=== PATIENT | male | born 1990 | race Hispanic/Latino ===

== ENCOUNTER 2025-04-01 22:35 | Emergency (ER) | payer OTHER ==
[~2025-04-01] VITALS: Ht 172.7 cm; Wt 73.9 kg
[2025-04-01 23:05] LABS: BASOPHILS # (AUTO) 0.04 K/uL (0.00-0.20); BASOPHILS % (AUTO) 0.5 % (0.0-5.0); EOSINOPHILS # (AUTO) 0.28 K/uL (0.00-0.70); EOSINOPHILS % (AUTO) 3.4 % (0.0-8.0); HEMATOCRIT 33.8 % (42-54); IMMATURE GRANULOCYTE ABSOLUTE 0.01 K/uL (0-1); LYMPHOCYTES # (AUTO) 2.4 K/uL (1.0-4.8); LYMPHOCYTES % (AUTO) 28.7 % (21.0-51.0); MEAN CORPUSCULAR HEMOGLOBIN 28.9 pg (27.0-33.0); MEAN CORPUSCULAR HGB CONC 34.9 g/dL (32.0-36.0); MEAN CORPUSCULAR VOLUME 82.8 fL (79-99); MONOCYTES # (AUTO) 1.2 K/uL (0.1-1.0); NEUTROPHILS # (AUTO) 4.4 K/uL (1.8-7.7); NEUTROPHILS % (AUTO) 53.3 % (40.0-77.0); PLATELET COUNT (AUTO) 255 K/uL (130-400); RED BLOOD CELL COUNT(AUTO) 4.08 MIL/uL (4.50-6.20); WHITE BLOOD COUNT (AUTO) 8.2 K/uL (4.8-10.8)
[2025-04-01 23:13] LABS: CREATININE 0.7 mg/dL (0.5-1.3); POTASSIUM 3.6 mmol/L (3.5-5.1)
[2025-04-01 23:14] LABS: INR 1.03 (0.85-1.15); PROTHROMBIN TIME 10.9 SEC (9.6-11.6)
[2025-04-01 23:33] LABS: AMPHET/METH SCREEN,URINE NEGATIVE (NEGATIVE); BARBITURATE SCREEN, URINE NEGATIVE (NEGATIVE); BENZODIAZEPINES SCREEN,URINE NEGATIVE (NEGATIVE); CANNABINOID SCREEN,URINE NEGATIVE (NEGATIVE); COCAINE SCREEN,URINE NEGATIVE (NEGATIVE); OPIATE SCREEN,URINE NEGATIVE (NEGATIVE); PHENCYCLIDINE SCREEN,URINE NEGATIVE (NEGATIVE)
[2025-04-01 23:34] LABS: B-TYPE NATRIURETIC PEPTIDE < 5 pg/mL (0-100)
--- NOTE | 2025-04-01 23:54 | HMCIMG ---
CHEST 1VW HISTORY: Chest pain COMPARISON: None FINDINGS: A frontal projection of the chest was obtained. Prominent interstitial markings are seen with possible superimposed infiltrates. The heart is normal in size. Degenerative changes are seen. No evidence of aortic calcification is seen. IMPRESSION: 1. Prominent interstitial markings are seen with possible superimposed infiltrates.
[2025-04-02 00:41] VITALS: BP 120/81; PULSE 80; RESP 19; TEMP 98.6; O2SAT 98
--- NOTE | 2025-04-02 00:42 | ERN ---
General Chief Complaint: Chest Pain Stated Complaint: SOB WITH ASSOCIATED CP IN [facility] Time Seen by MD: 22:41 History of Present Illness Initial Comments 34-year-old male brought in by EMS from a [facility] for chest pains. Patient reports he has been feeling left-sided chest pain for the last 24 hours. It radiates to his left arm. He reports he does have a cardiac history and has a child he had a heart surgery. Denies other symptoms. Past Medical History Past Medical History: Asthma, Diabetes-Type II, Hypertension, Seizure Past Surgical History: Unknown ROS Dictation CONSTITUTIONAL: No chills, no fever, no weakness, no diaphoresis, no malaise. HEAD/FACE: No signs of trauma. EENT: No eye pain, no blurred vision, no tearing, no double vision, no ear pain, no ear discharge, no nose pain, no nasal congestion, no throat pain, no throat swelling, no mouth pain. RESPIRATORY: No cough, no orthopnea, no SOB, no stridor, no wheezing. CARDIOVASCULAR: Chest pain GASTROINTESTINAL/ABDOMINAL: No abdominal pain, no constipation, no diarrhea, no nausea, no vomiting. GENITOURINARY: No abnormal discharge, no dysuria, no frequent urination, no hematuria. No complaints of pain in the genitals. MUSCULOSKELETAL: No back pain, no gout, no joint pain, no joint swelling, no muscle pain, no muscle stiffness, no neck pain. INTEGUMENTARY: No change in color, no change in hair/nails, no dryness, no lesion, no lumps, no rash. NEUROLOGICAL/PSYCH: No anxiety, not depressed, no emotional problem, no headache, no numbness, no pre-existing deficit, no history of seizures, no tremors, no weakness. HEMATOLOGIC/LYMPHATIC: Not anemic, no history of blood clots, no apparent bleeding, no bruising, glands not swollen. All Systems Negative, Except as Noted. Physical Exam Physical Exam Dictation VITAL SIGNS: Reviewed. GENERAL APPEARANCE: Alert, oriented x3, no acute distress, obese. HEAD AND FACE: Non-traumatic. EYES: PERRL, pink conjunctivas, eyelid no trauma, anterior chamber clear. EARS: Pinnas intact and no signs of trauma or erythema. Ear canals clear and no discharge. TMs no erythema. NOSE: No discharge, no bleeding. OROPHARYNX: Mouth normal, teeth no caries, tongue pink. Pharynx clear, no erythema. Tonsils no exudates, no abscesses noted. Mucous membrane moist. NECK: Supple, non-tender, no thyromegaly, no masses, no JVD, no bruits. BREAST: Deferred. CHEST: No tenderness, no crepitus, no paradoxical movement, no retractions. LUNGS: Clear, well-ventilated, symmetric, no rales, no wheezing, no rhonchi, no stridor, good breath sounds bilaterally. HEART: Regular rate, regular rhythm, no murmur, no gallops. VASCULAR: No peripheral edema. ABDOMEN: Soft, positive bowel sounds, nondistended, no guarding, nontender, no rebound, no masses no hepatomegaly, no splenomegaly, no Lorenzana's sign, no hernias. RECTAL: Deferred. GENITAL: Deferred. NEUROLOGICAL: Normal speech, gross motor function intact, gross sensory function intact. MUSCULOSKELETAL: Neck nontender, full range of motion, back nontender, full range of motion. EXTREMITIES: Nontender, full range of motion. SKIN: Color pink, dry, no turgor, no rash, no lacerations, no abrasions, no contusions. LYMPHATICS: Deferred. Results Laboratory and Microbiology Lab and Micro Result Laboratory Tests Test 04/01/25 22:50 04/01/25 23:10 04/01/25 23:55 White Blood Count 8.2 K/uL (4.8-10.8) Red Blood Count 4.08 MIL/uL (4.50-6.20) L Hemoglobin 11.8 g/dL (14.0-18.0) L Hematocrit 33.8 % (42-54) L Mean Corpuscular Volume 82.8 fL (79-99) Mean Corpuscular Hemoglobin 28.9 pg (27.0-33.0) Mean Corpuscular Hemoglobin Concent 34.9 g/dL (32.0-36.0) Red Cell Distribution Width 13.0 % (11.0-15.5) Platelet Count 255 K/uL (130-400) Mean Platelet Volume 8.7 fL (7.5-10.5) Immature Granulocyte % (Auto) 0.1 % (0-1) Neutrophils (%) (Auto) 53.3 % (40.0-77.0) Lymphocytes (%) (Auto) 28.7 % (21.0-51.0) Monocytes (%) (Auto) 14.0 % (3.0-13.0) H Eosinophils (%) (Auto) 3.4 % (0.0-8.0) Basophils (%) (Auto) 0.5 % (0.0-5.0) Neutrophils # (Auto) 4.4 K/uL (1.8-7.7) Lymphocytes # (Auto) 2.4 K/uL (1.0-4.8) Monocytes # (Auto) 1.2 K/uL (0.1-1.0) H Eosinophils # (Auto) 0.28 K/uL (0.00-0.70) Basophils # (Auto) 0.04 K/uL (0.00-0.20) Absolute Immature Granulocyte (auto 0.01 K/uL (0-1) Nucleated Red Blood Cells 0.0 % (0.0-0.19) Prothrombin Time 10.9 SEC (9.6-11.6) Prothromb Time International Ratio 1.03 (0.85-1.15) Sodium Level 137 mmol/L (136-145) Potassium Level 3.6 mmol/L (3.5-5.1) Chloride Level 102 mmol/L (101-111) Carbon Dioxide Level 28 mmol/L (21-32) Blood Urea Nitrogen 13 mg/dL (7-18) Creatinine 0.7 mg/dL (0.5-1.3) Glomerular Filtration Rate Calc 122 mL/min (>90) Random Glucose 96 mg/dL (70-105) Total Calcium 9.4 mg/dL (8.5-10.1) Total Creatine Kinase 396 U/L (21-232) H Troponin I High Sensitivity 6 ng/L (4-75) 7 ng/L (4-75) B-Type Natriuretic Peptide < 5 pg/mL (0-100) Urine Opiates Screen NEGATIVE (NEGATIVE) Urine Barbiturates Screen NEGATIVE (NEGATIVE) Urine Phencyclidine Screen NEGATIVE (NEGATIVE) Urine Amphetamines Screen NEGATIVE (NEGATIVE) Urine Benzodiazepines Screen NEGATIVE (NEGATIVE) Urine Cocaine Screen NEGATIVE (NEGATIVE) Urine Marijuana (THC) Screen NEGATIVE (NEGATIVE) MDM CC: Chest pain Historian: Patient Comorbidities: Reported cardiac surgery as a child, psychiatric disorder Limitations by social determinants of health: Current prisoner Differential diagnosis: ACS, arrhythmia, heart failure, other EKG: Sinus rhythm, rate 82, normal axis, good R-wave progression, intervals are stable no STEMI. Independently interpreted by me. Vital signs are stable, remained stable in the ER Labs (independently ordered and interpreted by me): CBC is normal, metabolic panel normal, troponin x2 normal, BNP normal. Tox screen negative. Chest x-ray (independently interpreted by me): No cardiomegaly or focal infiltrates pleural effusion. Patient has a heart score of 0, two normal troponins. Low risk Wells, PERC negative, no signs of TID pneumonia pneumothorax or other life threats. Can be worked up as an outpatient We will DC ED Course Orders Procedure Category Date Status Time Cbc With Differential LAB 04/01/25 Complete 22:41 Prothrombin Time With LAB 04/01/25 Complete INR 22:41 B-Type Natriuretic LAB 04/01/25 Complete Peptide 22:41 Chest 1vw RAD 04/01/25 Resulted 22:41 12 Lead Ekg Tracing- EKG 04/01/25 Logged Technical 22:41 Creatine Kinase, Total LAB 04/01/25 Complete 22:41 Troponin I High LAB 04/01/25 Complete Sensitivity 22:41 Basic Metabolic Panel LAB 04/01/25 Complete 22:41 Drug Screen Urine LAB 04/01/25 Complete 22:41 Troponin I High LAB 04/01/25 Complete Sensitivity 23:38 Vital Signs Date Time Temp Pulse Resp B/P (MAP) Pulse Ox O2 Delivery O2 Flow Rate FiO2 04/01/25 22:37 99.1 91 16 135/108 97 Room Air 0 DX & DISP Disposition: Discharge Departure Impression: Primary Impression: Chest pain, non-cardiac Condition: Stable Additional Instructions: There are no dangerous findings on your workup here today. You EKGs normal. Your chest x-ray is normal. Your blood work (CBC with differential, metabolic panel, CK, troponin x2, BNP) is unremarkable. Please follow up with a primary provider. Return to the emergency department as needed. Referrals: SELF,REFERRAL (PCP) ERIK CHAVEZ DO April 02, 2025 00:42
--- NOTE | 2025-04-02 06:31 | EKG ---
[facility] Test Date: 2025-04-01 Test Time: 23:06:32 Pat Name: OTIS ARANA Department: ED Room: Gender: M [place] Support Worker: [id number] : 1990 Requested By: ERIK CHAVEZ Order Number: [id number] Reading MD: Marin Velasquez Measurements Intervals [place] Rate: 82 P: 39 OK: 150 QRS: 71 QRSD: 103 T: 45 QT: 377 QTc: 439 Interpretive Statements Sinus rhythm No previous ECG available for comparison Electronically Signed On 04-05-2025 22:11:06 CDT by Marin Velasquez Please click the below link to view image of tracing.
== END 2025-04-02 00:50 ==
LOC: EEVIPCON 22:35 → EDH 22:35
DX: R07.89 Other chest pain (principal); E11.9 Type 2 diabetes mellitus without complications; I10 Essential (primary) hypertension; J45.909 Unspecified asthma, uncomplicated
CPT/HCPCS: 36415; 71045; 80048; 80305; 82550; 83880; 84484; 85025; 85610; 93005; 99285